=== PATIENT | female | born 1970 | race Caucasian/White ===

== ENCOUNTER 2016-08-06 11:35 | Day surgery (SDC) | payer OTHER ==
--- NOTE | ~2016-08-06 | OP ---
Record Of Operation [facility] [address] [place]. [address] NAME: AMADOR HALL : 68 STATUS : REG [facility] PAT#: [id number] AGE: 45 ADM/REG DATE : 08/06/16 MR#: [id number] REPORT SERV DATE: 08/06/16 DICTATED BY: Renee DE LA GARZA DATE: 08/06/16 REPORT STATUS : Draft TRANSCRIBED BY: MODL DATE: 08/06/16 DATE OF PROCEDURE: 08/06/2016 PREOPERATIVE DIAGNOSIS: Left distal ureteral stone. POSTOPERATIVE DIAGNOSIS: Left distal ureteral stone. PROCEDURE: Cystoscopy, left retrograde pyelography, ureteroscopy, basket stone extraction, double-J stent placement. SURGEON: Renee De La Garza M.D. ANESTHESIA: General. COMPLICATIONS: None. DRAINS: Seven-Dutch by 24 cm Contour double-J stent. BRIEF HISTORY: Ms. Hall is a pleasant 45-year-old white female, seen by me for the first time in the office earlier this week. She had been seen in the ER on 07/30/2016, with a 4 mm left distal stone. It was not certain which pelvic calcifications corresponded to on a KUB and we gave her the option of continued attempts of passage versus stone extraction. She was fairly miserable and wanted to arrange stone extraction as soon as possible. We discussed the risks of bleeding, infection, anesthesia, injury to adjacent organs, inability to access stone, and need for postoperative stent. There were no unanswered questions. DESCRIPTION OF PROCEDURE: Under excellent general anesthesia, the patient was prepped and draped in a standard lithotomy position. Cystoscopy was performed with a 30-degree lens, revealed a normal bladder without tumor, stones, or foreign bodies. An 8-Dutch cone-tipped catheter was used to perform a left retrograde pyelogram. It showed a small area of dilation of the distal ureter. There really was not a lot of proximal ureteral dilation. I inserted an angled glidewire through a 5-Dutch open-ended ureteral catheter, passed up into the collecting system and then the short rigid ureteroscope was inserted alongside the wire. A anna-colored stone was seen in the distal ureter and engaged in a nitinol basket. It was removed without difficulty and sent for analysis. I reinspected the ureter and except for the stone trauma, I saw no other evidence of residual stone. I dilutely opacified the collecting system retrofitted the wire in the cystoscope, placed a 7-Dutch x 24 cm Contour double-J stent. It coiled nicely in the renal pelvis and bladder. I plan to discharge Ms. Hall as an outpatient with the following instructions: DISCHARGE INSTRUCTIONS: 1. Home today. 2. Percocet 5/325 one to two p.o. q.4 hours p.r.n. pain #20. 3. Pyridium 200 mg one p.o. t.i.d. p.r.n. bladder pain #15 with three refills. 4. Follow up in my office in one week for cysto stent removal. She wants this done under anesthesia, that can be arranged but I think she could probably tolerate it quite well Record Of Operation [address] [place]. [address] NAME: AMADOR HALL : 68 STATUS : REG [facility] PAT#: [id number] AGE: 45 ADM/REG DATE : 08/06/16 MR#: [id number] REPORT SERV DATE: 08/06/16 DICTATED BY: Renee DE LA GARZA DATE: 08/06/16 REPORT STATUS : Draft TRANSCRIBED BY: YELITZA DATE: 08/06/16 in the office. MAREN/YELITZA Renee De La Garza M.D. / [id number] CC: Vikas Preston M.D.
[~2016-08-06 11:35] MED LIST: ENDOCET1 TAB PO; PR25 PO
[2016-08-12 18:40] LABS: STONE COMPOSITION TWO DNR (())
== END 2016-08-06 16:38 | disposition home or self-care (01) ==
LOC: SDC 11:35
PROC: BT1F1ZZ Fluoroscopy of Left Kidney, Ureter and Bladder using Low Osmolar Contrast (ICD-10-PCS; 2016-08-06)
PROC: 0T778DZ Dilation of Left Ureter with Intraluminal Device, Via Natural or Artificial Opening Endoscopic (ICD-10-PCS; principal; 2016-08-06 13:30)
DX: N20.1 Calculus of ureter (principal); Z88.2 Allergy status to sulfonamides; Z88.1 Allergy status to other antibiotic agents; Z98.890 Other specified postprocedural states; Z79.899 Other long term (current) drug therapy; Z79.891 Long term (current) use of opiate analgesic
CPT/HCPCS: 74420; 82365; C1758; C1769; C1874; J2250; J2270; J2405; J2710; J3010; Q9967